=== PATIENT | male | born 1935 | race Caucasian/White ===

== ENCOUNTER → 2017-09-11 | Outpatient (CLI) | payer OTHER | LOC: FIMAGING 16:59 | PROVIDERS: ATTEND Physical Medicine & Rehabilitation Neuromuscular Medicine | DX: M54.16 Radiculopathy, lumbar region (principal); M41.9 Scoliosis, unspecified; M25.78 Osteophyte, vertebrae; M51.36 Other intervertebral disc degeneration, lumbar region ==

== ENCOUNTER → 2017-12-31 | Outpatient (CLI) | payer OTHER | DX: Z13.820 Encounter for screening for osteoporosis (principal); M81.0 Age-related osteoporosis without current pathological fracture; M48.062 Spinal stenosis, lumbar region with neurogenic claudication; M43.16 Spondylolisthesis, lumbar region; M19.90 Unspecified osteoarthritis, unspecified site; Z85.46 Personal history of malignant neoplasm of prostate ==

== ENCOUNTER → 2018-09-16 | Outpatient (CLI) | payer OTHER | LOC: EMCIMAGING 15:00 | PROVIDERS: ATTEND Physical Medicine & Rehabilitation | DX: M16.0 Bilateral primary osteoarthritis of hip (principal); M47.817 Spondylosis without myelopathy or radiculopathy, lumbosacral region; I71.4 Abdominal aortic aneurysm, without rupture; K57.30 Diverticulosis of large intestine without perforation or abscess without bleeding; N40.0 Benign prostatic hyperplasia without lower urinary tract symptoms | CPT/HCPCS: 72192-PN ==